=== PATIENT | male | born 1985 | race Native Hawaiian/Other Pacific Islander ===

== ENCOUNTER 2017-02-26 06:58 | Day surgery (SDC) | payer BC ==
[2016-07-03 09:56] VITALS: BMI 20.9
[2017-02-26] MEDS ORDERED: Midazolam 2 MG/2 ML VIAL ONE (08:11)
[2017-02-26] MEDS ORDERED: Propofol 10 mg/ml Inj (20 ML) ONE (08:11)
[2017-02-26] MEDS ORDERED: Lactated Ringer's 1,000 ML IV ONE ×2 (08:15)
--- NOTE | 2017-02-26 08:25 | CP.SDSHP ---
Same Day Surgery H & P - History Proposed Procedure: colonoscopy Pre-Op Diagnosis: Crohns ileocolitis. Abnormal CT Scan of TV colon - Previous Medical/Surgical History Misc: Other (Crohn's ileocolitis ) Previous Surgical History: none - Allergies Allergies: Allergies No Known Allergies Allergy (Verified 02/26/17 07:25) - Physical Exam Vital Signs: Vital Signs 02/26/17 07:20 Temperature 97.7 F Pulse Rate 75 Respiratory 19 Rate Blood Pressure 113/75 O2 Sat by Pulse 99 Oximetry Mental Status: Alert & Oriented x3 Neuro: WNL Heart: WNL Lungs: WNL GI: WNL - Impression Impression: abnormal CT Scan of TV colon. Crohn's ileocolitis Pt. 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
[2017-02-26 08:30] VITALS: O2SAT 100
[2017-02-26 08:58] VITALS: RESP 12; TEMP 97
[2017-02-26 10:12] VITALS: BP 99/70; PULSE 61
== END 2017-02-26 10:11 | disposition home or self-care (01) ==
LOC: C.ENDO 06:58
PROVIDERS: ATTEND Internal Medicine Gastroenterology
DX: K50.112 Crohn's disease of large intestine with intestinal obstruction (principal); R19.7 Diarrhea, unspecified; K64.8 Other hemorrhoids; K50.90 Crohn's disease, unspecified, without complications
CPT/HCPCS: 45380; 87045; 87177; 87209; 87230; 88305; 89055; J2250; J2704; J7120